=== PATIENT | female | born 1980 | race Caucasian/White ===

== ENCOUNTER 2019-01-11 20:05 | Inpatient (IN) | payer OTHER ==
[~2019-01-11] VITALS: Ht 165.1 cm; Wt 104.3 kg
[~2019-01-11 20:05] MED LIST: CODE1TAB37 PO; DOXY 100100 MG IV; DOXYCYCLINE HY100 MG PO; METFORMIN HCL500 MG PO
[2019-01-11] MEDS ORDERED: PRENATAL TABLE1 EAC1 PO (23:05)
[2019-01-14] MEDS ORDERED: TYLENOL #3 PO (09:39)
== END 2019-01-14 17:31 | disposition home or self-care (01) | DRG 807 ==
LOC: LDR 20:05 → OB/GYN 01-12 22:46
PROVIDERS: ADMIT Obstetrics & Gynecology
PROC: 0UQGXZZ Repair Vagina, External Approach (ICD-10-PCS; 2019-01-11)
PROC: 3E0P7VZ Introduction of Hormone into Female Reproductive, Via Natural or Artificial Opening (ICD-10-PCS; 2019-01-11)
PROC: 10E0XZZ Delivery of Products of Conception, External Approach (ICD-10-PCS; principal; 2019-01-12)
PROC: 4A1HXCZ Monitoring of Products of Conception, Cardiac Rate, External Approach (ICD-10-PCS; 2019-01-12)
PROC: 3E033VJ Introduction of Other Hormone into Peripheral Vein, Percutaneous Approach (ICD-10-PCS; 2019-01-12)
PROC: 10907ZC Drainage of Amniotic Fluid, Therapeutic from Products of Conception, Via Natural or Artificial Opening (ICD-10-PCS; 2019-01-12)
DX: O71.4 Obstetric high vaginal laceration alone (principal); Z37.0 Single live birth; Z3A.38 38 weeks gestation of pregnancy

== ENCOUNTER 2023-08-07 22:46 | Inpatient (IN) | payer OTHER ==
[~2023-08-07] VITALS: Ht 152.4 cm; Wt 104.3 kg
[~2023-08-07 22:46] MED LIST changes: +PRENATAL TABLE1 EAC1 PO; +TYLENOL #3 PO
[2023-08-08 01:16] LABS: HEMATOCRIT 45.1 % (36.0-45.00); HEMOGLOBIN 14.3 g/dL (12.0-15.00); MEAN CELL VOLUME 86.2 fL (80.00-100.00); MEAN CORPUSCULAR HEMOGLOBIN 27.3 pg (27.00-32.0); MEAN CORPUSCULAR HGB CONC 31.6 g/dl (32.0-36.0); PLATELET COUNT 367 K/uL (150-450); RED BLOOD COUNT 5.23 M/uL (4.00-6.00); RED CELL DISTRIBUTION WIDTH 16.7 % (11.5-14.5)
[2023-08-08 01:30] LABS: ALBUMIN 3.8 gm/dL (3.4-5.0); BILIRUBIN TOTAL 0.47 mg/dL (0.3-1.2); CALCIUM 8.8 mg/dL (8.5-10.1); CREATININE SERUM 1.42 mg/dL (0.55-1.02); GFR 40.57; GLOBULINA 4.9 G/DL (2.4-3.5); POTASSIUM 4.29 mEq/L (3.5-5.1); TOTAL PROTEIN 8.7 gm/dL (6.4-8.2)
[2023-08-08 02:01] LABS: ABG PH 7.057 (7.35-7.45); ABG PO2 140.8 mmHg (80-100); ABG pCO2 9.7 mmHg (35-45); BASE EXCESS -25.4 mmol/l; BICARBONATE 2.7 mmol/l (23-25); SaO2 96.8 %
[2023-08-08 02:02] LABS: allen test SATISFACTORY; o2 21 %; puncture site RADIAL RIGHT
[2023-08-08 03:00] LABS: PH,URINE 5.5 (5.0-8.0); URINE APPEARANCE Clear; URINE BILIRRUBIN Negative (NEGATIVE); URINE BLOOD Small; URINE COLOR Yellow; URINE LEUKOCYTE Negative; URINE NITRATE Negative; URINE PROTEIN 30 (NEGATIVE); URINE UROBILINOGEN 0.2 E.U./dl
[2023-08-08 03:04] LABS: URINE BACTERIA 21.4 uL (0.0-1933); URINE EPITHELIAL CELLS 5.2 uL (0.0-38.8); URINE GLUCOSE >=1000 MG/DL (NEGATIVE); URINE RBC 2.5 uL (0.0-20.8); URINE WBC 1.2 uL (0.0-23.2)
[2023-08-08 06:57] LABS: ABG PH 7.167 (7.35-7.45); ABG PO2 140.6 mmHg (80-100); ABG pCO2 12.4 mmHg (35-45); BASE EXCESS -21.5 mmol/l; SaO2 97.8 %
[2023-08-08 06:58] LABS: BICARBONATE 4.4 mmol/l (23-25); Tco2 4.8 mmol/l; allen test SATISFACTORY; o2 21 %; puncture site RADIAL RIGHT
[2023-08-08 19:23] LABS: CALCIUM 8.1 mg/dL (8.5-10.1); CREATININE SERUM 1.04 mg/dL (0.55-1.02); GFR 58.11; POTASSIUM 3.18 mEq/L (3.5-5.1)
[2023-08-08 20:15] LABS: ABG PH 7.187 (7.35-7.45)
[2023-08-08 20:16] LABS: ABG PO2 127.2 mmHg (80-100); ABG pCO2 13.6 mmHg (35-45); BASE EXCESS -20.5 mmol/l; BICARBONATE 5.1 mmol/l (23-25); SaO2 97.3 %; Tco2 5.5 mmol/l; allen test SATISFACTORY; o2 24 %; puncture site RADIAL LEFT
[2023-08-09 05:32] LABS: URINE BILIRRUBIN SMALL (NEGATIVE); URINE BLOOD MODERATE; URINE GLUCOSE NEGATIVE (NEGATIVE); URINE LEUKOCYTE NEGATIVE; URINE NITRATE NEGATIVE; URINE PROTEIN 30 (NEGATIVE); URINE UROBILINOGEN 0.2 E.U./dl
[2023-08-09 05:58] LABS: URINE APPEARANCE CLEAR; URINE BACTERIA MODERATE; URINE COLOR YELLOW; URINE EPITHELIAL CELLS 0-4 /HPF; URINE WBC 0-2 /hpf
[2023-08-09 07:40] LABS: PARTIAL THROMBOPLASTIN TIME 22.2 SECONDS (22.0-34.0); PROTHROMBIN TIME 10.5 SECONDS (9.0-11.5)
[2023-08-09 08:04] LABS: ALBUMIN 2.7 gm/dL (3.4-5.0); ALKALINE PHOSPHATASE 115 U/L (50-136); ALT/SGPT 22 U/L (12-78); AMYLASE 312 U/L (25-115); AST/SGOT 15 U/L (15-37); BILIRUBIN TOTAL 0.57 mg/dL (0.3-1.2); BLOOD UREA NITROGEN 9 mg/dL (7-18); BUN CREA RATIO 9 (7.0-25.0); CALCIUM 8.1 mg/dL (8.5-10.1); CHLORIDE 115 mmol/L (98-107); CHOL HDL RATIO 6.1 (0-5.0); CHOLESTEROL 245 mg/dL (0-200); CREATININE SERUM 1.02 mg/dL (0.55-1.02); GFR 59.43; GLOBULINA 3.6 G/DL (2.4-3.5); HDL 40 mg/dl (40-60); LDH 139 U/L (84-246); PHOSPHOKINASE CREATININE 68 U/L (26-192); SODIUM 140 mmol/L (136-145); TOTAL PROTEIN 6.3 gm/dL (6.4-8.2)
[2023-08-09 08:07] LABS: HEMATOCRIT 35.5 % (36.0-45.00); HEMOGLOBIN 12.1 g/dL (12.0-15.00); MEAN CELL VOLUME 81.3 fL (80.00-100.00); MEAN CORPUSCULAR HEMOGLOBIN 27.7 pg (27.00-32.0); MEAN CORPUSCULAR HGB CONC 34.1 g/dl (32.0-36.0); PLATELET COUNT 210 K/uL (150-450); RED BLOOD COUNT 4.37 M/uL (4.00-6.00)
[2023-08-09 08:12] LABS: ERYTHROCYTE SEDIMENTATION RATE 20 mm/hr
[2023-08-09 08:49] LABS: ANION GAP 16 (10.0-20.0); C-REACTIVE PROTEIN < 0.29 MG/DL (0.00-0.29); GLUCOSE FASTING 228 mg/dL (65-100); LDL 163 mg/dl (0-130); LIPASE 1031 U/L (13-75); OSMOLALITY SERUM 285 MOSM/KG (275-295); VLDL 41 (0-39)
[2023-08-09 08:50] LABS: CARBON DIOXIDE 11 mEq/L (21-32); POTASSIUM 2.27 mEq/L (3.5-5.1); TRIGLYCERIDES 208 mg/dL (0-150)
[2023-08-09 11:36] LABS: CKMB 1.1 NG/ML (0.5-3.6)
[2023-08-10 08:49] LABS: CALCIUM 7.9 mg/dL (8.5-10.1); CREATININE SERUM 0.72 mg/dL (0.55-1.02); GFR 88.83; TSH 0.96 uIU/mL (0.358-3.74)
[2023-08-10 08:58] LABS: POTASSIUM 2.31 mEq/L (3.5-5.1)
[2023-08-10 17:56] LABS: CALCIUM 8.4 mg/dL (8.5-10.1); CREATININE SERUM 0.84 mg/dL (0.55-1.02); GFR 74.35
[2023-08-10 18:03] LABS: POTASSIUM 2.88 mEq/L (3.5-5.1)
[2023-08-10 21:03] LABS: ABG PH 7.473 (7.35-7.45); ABG PO2 122.6 mmHg (80-100); ABG pCO2 25.8 mmHg (35-45); BASE EXCESS -3.3 mmol/l; BICARBONATE 18.5 mmol/l (23-25); SaO2 98.9 %; Tco2 19.3 mmol/l; o2 21 %
[2023-08-10 21:04] LABS: allen test SATISFACTORY; puncture site RADIAL RIGHT
[2023-08-11 07:05] LABS: CALCIUM 7.8 mg/dL (8.5-10.1); CREATININE SERUM 0.65 mg/dL (0.55-1.02); GFR 99.96; POTASSIUM 3.17 mEq/L (3.5-5.1)
[2023-08-12 06:44] LABS: CREATININE SERUM 0.5 mg/dL (0.55-1.02); GFR 135.3; POTASSIUM 3.68 mEq/L (3.5-5.1)
[2023-08-13 07:26] LABS: HEMOGLOBIN 10.7 g/dL (12.0-15.00); MEAN CELL VOLUME 80.9 fL (80.00-100.00); MEAN CORPUSCULAR HEMOGLOBIN 27.9 pg (27.00-32.0); MEAN CORPUSCULAR HGB CONC 34.5 g/dl (32.0-36.0); PLATELET COUNT 179 K/uL (150-450); RED BLOOD COUNT 3.83 M/uL (4.00-6.00); RED CELL DISTRIBUTION WIDTH 16.7 % (11.5-14.5)
[2023-08-13 07:53] LABS: ALBUMIN 2.5 gm/dL (3.4-5.0); BILIRUBIN TOTAL 0.35 mg/dL (0.3-1.2); CALCIUM 8.3 mg/dL (8.5-10.1); CREATININE SERUM 0.57 mg/dL (0.55-1.02); GFR 116.32; GLOBULINA 2.7 G/DL (2.4-3.5); POTASSIUM 3.29 mEq/L (3.5-5.1); TOTAL PROTEIN 5.2 gm/dL (6.4-8.2)
[2023-08-13 16:10] LABS: PANCREATIC ISLET CELL Negative (Neg:<1:1)
[2023-08-13 18:07] LABS: GLUTAMIC ACID DECARBOXYLASE < 5.0 U/mL (0.0-5.0)
== END 2023-08-14 19:08 | disposition home or self-care (01) | DRG 638 ==
LOC: ER 22:46 → MEDI 08-08 18:04 → ICU-2 08-08 18:04 → ICU 08-08 18:04 → MEDI 08-11 22:42
PROVIDERS: General Practice; Internal Medicine Endocrinology, Diabetes & Metabolism; ADMIT Specialist; ATTEND Specialist
PROC: 3E0F7GC Introduction of Other Therapeutic Substance into Respiratory Tract, Via Natural or Artificial Opening (ICD-10-PCS; 2023-08-08)
PROC: 02HV33Z Insertion of Infusion Device into Superior Vena Cava, Percutaneous Approach (ICD-10-PCS; principal; 2023-08-11)
DX: E11.10 Type 2 diabetes mellitus with ketoacidosis without coma (principal); N17.8 Other acute kidney failure; E86.0 Dehydration; D72.828 Other elevated white blood cell count; Z79.4 Long term (current) use of insulin; E87.6 Hypokalemia; E66.9 Obesity, unspecified